=== PATIENT | female | born 1995 | race Two or more races ===

== ENCOUNTER 2021-09-25 19:48 | Emergency (ER) | payer OTHER ==
[~2021-09-25] VITALS: Ht 200.7 cm; Wt 72.1 kg
[2021-09-25 21:04] LABS: Source, Urine Clean Catch
[2021-09-25 21:13] LABS: Appearance, Urine Clear (Clear); Bilirubin, Urine Neg (Neg); Blood, Urine 5+ (Neg); Color, Urine Yellow (P-Yellow); Glucose Qualitative, Urine Neg (Neg); Ketones, Urine Neg (Neg); Leukocyte Esterase, Urine Neg (Neg); Nitrite, Urine Neg (Neg); Protein, Urine Neg (Neg); Specific Gravity, Urine 1.005 (1.003-1.022); Urobilinogen, Urine NORM (Normal)
[2021-09-25 21:24] LABS: Bacteria Rare /hpf; Squamous Epithelial Cells Few /hpf (Few); White Blood Cells, Urine 0-2 /hpf (0-5)
== END 2021-09-25 22:13 | disposition home or self-care (01) ==
LOC: ER 19:48
PROVIDERS: Physician Assistant
DX: O98.511 Other viral diseases complicating pregnancy, first trimester (principal); O20.0 Threatened abortion; U07.1 COVID-19; Z3A.09 9 weeks gestation of pregnancy
CPT/HCPCS: 76801; 76817; 81001; 99284-25